=== PATIENT | male | born 1945 | race Caucasian/White ===

== ENCOUNTER 2019-03-21 10:57 | Observation (INO) ==
--- NOTE | 2019-03-21 11:54 | ERNOTE ---
Medical Problem HPI - General Chief Complaint: General Assessment Time Seen by Provider: 03/21/19 11:42 Source: patient Exam Limitations: no limitations - Immun/Allergies/Home Medications Immunizations: IMMUNIZATION HX Immunizations Up to Date Yes History of Influenza Vaccine Yes Hx Pneumococcal Vaccination Yes Allergies/Adverse Reactions: Allergies atorvastatin calcium [From Lipitor] Adverse Reaction (Mild, Verified 03/21/19 11:20) N/T IN ARMS Home Medications: HOME MEDICATIONS Calcium Carbonate/Vitamin D3 [Calcium 600 + Vit D 400 Tablet] 2 ea PO DAILY 03/23/14 [Last Taken 06/14/14 09:00] Fish,Saf,Flx,Brg Oils/O3,6,9N2 [Ukvv-Wnvp-Xacsnk Oil Softgel] 1 ea PO DAILY 03/23/14 [Last Taken 06/14/14 09:00] aspirin 81 mg chewable tablet 81 mg PO HS 07/03/18 [Last Taken Unknown] docusate sodium 100 mg capsule 100 mg PO DAILY #30 cap 03/03/19 [Last Taken Unknown] ferrous sulfate 324 mg (65 mg iron) tablet,delayed release 325 mg PO DAILY #30 tab 03/03/19 [Last Taken Unknown] trazodone 50 mg tablet 50 mg PO HS #90 tab 03/03/19 [Last Taken Unknown] citalopram 20 mg tablet 20 mg PO DAILY #30 tab 03/06/19 [Last Taken Unknown] losartan 100 mg tablet 100 mg PO DAILY #30 tab 03/06/19 [Last Taken Unknown] atenolol 25 mg tablet 25 mg PO HS tab 03/10/19 [Last Taken Unknown] - History of Present History Narrative: Patient went to try to take a walk this morning and was found to have extraordinarily high blood pressure and he had a brief episode where his vision became somewhat blurry. All the symptoms appear to have resolved by the time he got the emergency department, with the exception of the blood pressure still being high. Timing: gone now Severity: mild Review of Systems - Review of Systems Constitutional: Present: See HPI EYE: Present: no symptoms reported ENT: Present: no symptoms reported Respiratory: Present: no symptoms reported Cardiology: Present: no symptoms reported Gastrointestinal/Abdominal: Present: no symptoms reported Genitourinary: Present: no symptoms reported Musculoskeletal: Present: no symptoms reported Skin: Present: no symptoms reported Neurological: Present: no symptoms reported Endocrine: Present: no symptoms reported Hematologic/Lymphatic: Present: no symptoms reported Psych: Present: no symptoms reported Medical History (Updated 03/21/19 @ 13:21 by Hilario Louis DO) Major depressive disorder with current active episode (Chronic) Encounter for Medicare annual wellness exam (Acute) Medicare Preventative Screen Completed Constipation, chronic (Acute) secondary to medication side effect- ferrous sulfate Hypertension (Chronic) Hyponatremia (Acute) Osteoarthritis (Chronic) Onset Date: ~05/27/14 Knee pain (Chronic) Onset Date: Unknown Left Insomnia (Chronic) Onset Date: ~03/10/14 Hyperlipidemia (Chronic) Onset Date: Unknown Endocarditis (Chronic) Onset Date: Unknown Sub-acute bacterial Depression (Chronic) Onset Date: Unknown Hypertension Surgical History: Surgical History (Updated 07/03/18 @ 13:21 by Brittany Oliveira RN) H/O colonoscopy (Resolved) Onset Date: ~04/02/14 Tinguely; scattered diverticulosis Hx of cholecystectomy (Resolved) Onset Date: ~1974 H/O arthroplasty (Resolved) Onset Date: ~06/2014 Left; Right total knee arthroplasty Dr. Vann Family History: Family History (Updated 07/03/18 @ 13:23 by Brittany Oliveira RN) Father , age 83 CVA (cerebral vascular accident) Mother , age 80 Heart disease Sister , age 50 Alcoholic Social History: Preferred Language Mohawk Smoking Status Current some day smoker Have you smoked in the past 12 Yes: Cigars months Abuse History No History of abuse Psych History No pertinent hx Alcohol Use rarely Drug Use none (Last Updated 03/16/19 @ 08:44 by Анна Ruiz MD) No Social History Section defined Physical Exam - Physical Exam General Appearance: Present: wd/wn, alert, no apparent distress Eye Exam: Normal inspection: bilateral, PERRL: bilateral Ears, Nose, Throat: Present: normal ENT inspection, H, normal pharynx Neck: Present: normal inspection, nontender Respiratory: Present: no respiratory distress, normal breath sounds, no accessory muscle use, chest nontender, lungs clear Cardiovascular/Chest: Present: regular rate, rhythm, no murmur, normal peripheral pulses Gastrointestinal/Abdominal: Present: normal bowel sounds, nontender, nondi stended, soft, no organomegaly Rectal Exam: Present: deferred Back Exam: Present: normal inspection, normal range of motion Extremity Exam: Present: normal inspection, non-tender, no edema, normal range of motion Neurological Exam: Present: alert, oriented, normal mood/affect Skin Exam: Present: normal color, warm/dry Lymphatic Exam: Present: no adenopathy Progress - Results and Orders Patient's Lab Results:: I have reviewed the patient's lab results. - Vital Signs Patient's Vital Signs:: I have reviewed the patient's vital signs. Vital Signs: Vital Signs 03/21/19 11:16 03/21/19 11:28 03/21/19 11:41 Temperature 36.4 C Pulse Rate 58 L 68 64 Respiratory Rate 14 12 12 Blood Pressure 171/85 H 174/86 H 172/90 H O2 Sat by Pulse Oximetry 99 95 97 - CT/Ultrasound CT/Ultrasound Narrative: CT of the head reviewed by me - Progress/Reassessment Chief Complaint: General Assessment Plan - Plan Plan: I suspect that the sodium of 121 might be driving a lot of the symptomatology. Patient will be admitted to [facility] so we can correct the low sodium level. Departure Clinical Impression: Acute hyponatremia - Departure Disposition: Still a patient Condition: Fair Referrals: Arben Allen MD [Primary Care Provider] -
[2019-03-21 12:06] LABS: Hematocrit 32.5 % (42.0-52.0); Hemoglobin 11.8 gm/dL (13.5-18.0); Mean Corpuscular Hemoglobin 33.1 pg (27-31); Mean Corpuscular Hgb Conc 36.3 g/dl (32-36); Mean Platelet Volume 8.7 fl (8-11.3); Neutrophil # 3.4 K/mm3 (1.3-6.0); Platelet Count 230 K/mm3 (150-450); Red Blood Count 3.57 M/mm3 (4.7-6.0); Red Cell Distribution Width 12.8 % (11.5-14.0); White Blood Count 5.1 K/mm3 (4.0-10.5)
[2019-03-21 12:22] LABS: ALT 25 U/L (19-67); AST 25 U/L (0-48); Albumin * 3.5 gm/dl (3.4-5.0); Alkaline Phosphatase * 43 U/L (50-170); Anion Gap 11.2 mmol/L (6.8-13.8); Bilirubin, Total 0.7 mg/dL (0.0-1.1); Blood Urea Nitrogen 13 mg/dL (6-23); Ca. Corrected For Albumin 8.9 mg/dL (8.4-10.2); Calcium * 8.8 mg/dL (7.9-10.9); Carbon Dioxide 25.4 mmol/L (24-32.6); Chloride 89 mmol/L (97-106); Glucose * 109 mg/dL (70-110); Magnesium 1.9 mg/dL (1.2-2.8); Potassium 4.6 mmol/L (3.4-4.6); Sodium 121 mmol/L (132-142); Total Protein 6.5 gm/dL (6.2-8.2)
[2019-03-21 12:23] LABS: Troponin I Less than 0.017 ng/mL (0.00-0.10)
[2019-03-21 12:49] LABS: Urine Bilirubin Negative (NEGATIVE); Urine Blood 250 /ul (NEGATIVE); Urine Ketone Negative (NEGATIVE); Urine Nitrite Negative (NEGATIVE); Urine Protein >=300 mg/dL (NEGATIVE); Urine Urobilinogen Normal (NORMAL); Urine pH 7.5 pH (5.0-7.0)
[2019-03-21 13:02] LABS: Urine Appearance Slightly Cloudy (CLEAR); Urine Bacteria None Seen; Urine Color Yellow; Urine WBC 0-5 /hpf (0-5)
[2019-03-21] MEDS ORDERED: NORMAL SALINE 1,000 ML IV ONE (13:03)
[2019-03-21] MEDS: NORMAL SALINE 1,000 ML IV PRN ×2 (15:00→23:00)
--- NOTE | 2019-03-21 16:29 | HP ---
Chief Complaint - Chief Complaint Date of Service: 03/21/19 Time of Service: 14:30 Chief Complaint: lightheadedness, low Na+ History of Present Illness: Diego Curran is a 73-year-old male patient of Dr. Allen who presented to the emergency room after an episode of lightheadedness and blurry vision while walking on our walking track. He states he has been feeling well. He has had a cough that is nonproductive. He denies any constitutional problems such as fever, chills, nausea, vomiting, diarrhea, headaches, or abdominal pain. There is been no change in urination or bowel behavior. He takes no medications that would be triggering his hyponatremia. His urine does show 3+ proteinuria but I suspect it is from uncontrolled hypertension. He is taking losartan 100 mg daily and atenolol 25 mg each at bedtime but his blood pressure systolics are in the upper 160s. CT of the head was unrevealing. The EGFR remains normal at 84. There is 4+ protein sulfa silique acid and greater than 300 protein in the urine. Medical History (Updated 03/21/19 @ 13:21 by Hilario Louis DO) Major depressive disorder with current active episode (Chronic) Encounter for Medicare annual wellness exam (Acute) Medicare Preventative Screen Completed Constipation, chronic (Acute) secondary to medication side effect- ferrous sulfate Hypertension (Chronic) Hyponatremia (Acute) Osteoarthritis (Chronic) Onset Date: ~05/27/14 Knee pain (Chronic) Onset Date: Unknown Left Insomnia (Chronic) Onset Date: ~03/10/14 Hyperlipidemia (Chronic) Onset Date: Unknown Endocarditis (Chronic) Onset Date: Unknown Sub-acute bacterial Depression (Chronic) Onset Date: Unknown Hypertension Surgical History: Surgical History (Updated 07/03/18 @ 13:21 by Brittany Oliveira RN) H/O colonoscopy (Resolved) Onset Date: ~04/02/14 Tinguely; scattered diverticulosis Hx of cholecystectomy (Resolved) Onset Date: ~1974 H/O arthroplasty (Resolved) Onset Date: ~06/2014 Left; Right total knee arthroplasty Dr. Vann Family History: Family History (Updated 07/03/18 @ 13:23 by Brittany Oliveira RN) Father , age 83 CVA (cerebral vascular accident) Mother , age 80 Heart disease Sister , age 50 Alcoholic Social History: Patient Lives/Resources Home Utilized Occupation retired Preferred Language Gambian Do you have any restoration or Yes: Rastafari cultural preference? Smoking Status Light tobacco smoker Have you smoked in the past 12 Yes: occasional cigar months Do you dip or chew tobacco No Abuse History No History of abuse Psych History No pertinent hx Alcohol Use rarely Drug Use none (Last Updated 03/16/19 @ 08:44 by Анна Ruiz MD) No Social History Section defined Review Of Systems (GEN) - Review of Systems Generalized/Overall Review: Present: Weakness EENTM: Present: Blurred Vision Respiratory: Present: Cough Cardiac: Present: No Symptoms Reported Abdominal: Present: No Symptoms Reported Genitourinary: Present: No Symptoms Reported Musculoskeletal: Present: No Symptoms Reported Neurological: Present: Weakness Skin: Present: No Symptoms Reported Endocrine: Present: No Symptoms Reported Misc: All systems neg except as marked Immunizations: IMMUNIZATION HX Immunizations Up to Date Yes History of Influenza Vaccine Yes Hx Pneumococcal Vaccination Yes Allergies/Adverse Reactions: Allergies Allergy/AdvReac Type Severity Reaction Status Date / Time atorvastatin calcium AdvReac Mild N/T IN Verified 03/21/19 11:20 [From Lipitor] ARMS Home Medications: HOME MEDICATIONS Calcium Carbonate/Vitamin D3 [Calcium 600 + Vit D 400 Tablet] 2 ea PO DAILY 03/23/14 [Last Taken 06/14/14 09:00] Fish,Saf,Flx,Brg Oils/O3,6,9N2 [Nsji-Lsok-Ctjyoc Oil Softgel] 1 ea PO DAILY 03/23/14 [Last Taken 06/14/14 09:00] aspirin 81 mg chewable tablet 81 mg PO HS 07/03/18 [Last Taken Unknown] docusate sodium 100 mg capsule 100 mg PO DAILY #30 cap 03/03/19 [Last Taken Unknown] ferrous sulfate 324 mg (65 mg iron) tablet,delayed release 325 mg PO DAILY #30 tab 03/03/19 [Last Taken Unknown] trazodone 50 mg tablet 50 mg PO HS #90 tab 03/03/19 [Last Taken Unknown] citalopram 20 mg tablet 20 mg PO DAILY #30 tab 03/06/19 [Last Taken Unknown] losartan 100 mg tablet 100 mg PO DAILY #30 tab 03/06/19 [Last Taken Unknown] atenolol 25 mg tablet 25 mg PO HS tab 03/10/19 [Last Taken Unknown] Exam - Exam Vital Signs: Vital Signs - Last Taken Temp 36.7 C 03/21/19 14:00 Pulse 63 03/21/19 14:00 Resp 20 03/21/19 14:00 BP 184/97 H 03/21/19 14:00 Pulse Ox 98 03/21/19 14:00 Constitutional: Present: Alert, Oriented x3, Cooperative, Well developed, Well nourished, No distress ENT Exam: Present: normal ENT inspection, hearing grossly normal, pharynx normal, TMs normal Eye Exam: bilateral eye: normal inspection, PERRL, EOMI Neck: Present: non-tender, full range of motion, supple Back Exam: Present: normal inspection, no CVA tenderness, no vertebral tenderness Respiratory: Present: chest non-tender, lungs clear, normal breath sounds, no respiratory distress, no accessory muscle use Cardiovascular/Chest: Present: normal peripheral pulses, regular rate, rhythm, no chest tenderness, no edema, no gallop, no JVD, no murmur, no rub Peripheral Pulses: carotid (R): 2+, carotid (L): 2+, radial (R): 2+, radial (L): 2+ Abdomen: Present: Normal bowel sounds, soft, nontender, nondistended, no rebound tenderness, no hepatospenomegaly, no masses, obese /Rectal: Present: Exam deferred Extremity: Present: normal range of motion, non-tender, normal inspection, no pedal edema, no calf tenderness, normal capillary refill Skin Exam: Present: normal color, warm/dry, no cyanosis Lymphatic: Present: no adenopathy Neurologic: Present: sports internship II-XII nml as tested, normal cerebellar test, no motor/sensory deficits, alert, normal mood/affect, oriented x 3, dizzy/light- headedness - Earlier and is what caused him to go to the emergency room. He is not experiencing that now. Appearance: Present: appropriate appearance Eye contact: Present: cooperative, good eye contact, normal speech Thoughts: Present: normal thought pattern, no apparent hallucination Diagnostic Studies: Abnormal Lab Results 03/21/19 03/21/19 03/21/19 Range/Units 12:01 12:01 12:43 RBC 3.57 L (4.7-6.0) M/mm3 Hgb 11.8 L (13.5-18.0) gm/dL Hct 32.5 L (42.0-52.0) % MCH 33.1 H (27-31) pg MCHC 36.3 H (32-36) g/dl Lymphocytes % 16.4 L (20-51) % Monocytes % 14.0 H (0.0-9) % Lymphocytes # 0.83 L (1.5-3.5) k/mm3 Sodium 121 L (132-142) mmol/L Plasma Sodium 121 L (130-142) mmol/L Chloride 89 L (97-106) mmol/L Alkaline Phosphatase 43 L (50-170) U/L Urine Protein >=300 H (NEGATIVE) mg/dL Urine Blood 250 H (NEGATIVE) /ul Prot Sulfosalicylic Acd 4+ H (0) mg/dL Urine RBC 5-10 H (0-5) /hpf Laboratory Results WBC 5.1 K/mm3 (4.0-10.5) 03/21/19 12:01 RBC 3.57 M/mm3 (4.7-6.0) L 03/21/19 12:01 Hgb 11.8 gm/dL (13.5-18.0) L 03/21/19 12:01 Hct 32.5 % (42.0-52.0) L 03/21/19 12:01 MCV 91.0 fl (78-100) 03/21/19 12:01 MCH 33.1 pg (27-31) H 03/21/19 12:01 MCHC 36.3 g/dl (32-36) H 03/21/19 12:01 RDW 12.8 % (11.5-14.0) 03/21/19 12:01 Plt Count 230 K/mm3 (150-450) 03/21/19 12:01 MPV 8.7 fl (8-11.3) 03/21/19 12:01 Immature Gran % (Auto) 0.20 % (0.001-0.429) 03/21/19 12:01 Immature Gran # (Auto) 0.01 K/mm3 (0.000-0.0310) 03/21/19 12:01 68.0 % (42-75.0) 03/21/19 12:01 16.4 % (20-51) L 03/21/19 12:01 14.0 % (0.0-9) H 03/21/19 12:01 1.0 % (0.0-3.0) 03/21/19 12:01 0.4 % (0.0-1.0) 03/21/19 12:01 Nucleated RBC % 0.0 k/mm3 (0-1) 03/21/19 12:01 3.4 K/mm3 (1.3-6.0) 03/21/19 12:01 0.83 k/mm3 (1.5-3.5) L 03/21/19 12:01 0.7 k/mm3 (0.0-1.0) 03/21/19 12:01 0.1 k/mm3 (0.0-0.7) 03/21/19 12:01 Absolute Basophils 0.0 k/mm3 (0.0-0.1) 03/21/19 12:01 Sodium 121 mmol/L (132-142) L 03/21/19 12:01 121 mmol/L (130-142) L 03/21/19 12:01 Potassium 4.6 mmol/L (3.4-4.6) 03/21/19 12:01 Chloride 89 mmol/L (97-106) L 03/21/19 12:01 Carbon Dioxide 25.4 mmol/L (24-32.6) 03/21/19 12:01 11.2 mmol/L (6.8-13.8) 03/21/19 12:01 BUN 13 mg/dL (6-23) 03/21/19 12:01 0.93 mg/dL (0.4-1.4) 03/21/19 12:01 Est GFR (Non-Af Amer) 84 mL/min (60-130) 03/21/19 12:01 14.0 (9.0-21.6) 03/21/19 12:01 109 mg/dL (70-110) 03/21/19 12:01 Calcium 8.8 mg/dL (7.9-10.9) 03/21/19 12:01 Calcium Adj for Albumin 8.9 mg/dL (8.4-10.2) 03/21/19 12:01 Magnesium 1.9 mg/dL (1.2-2.8) 03/21/19 12:01 0.7 mg/dL (0.0-1.1) 03/21/19 12:01 AST 25 U/L (0-48) 03/21/19 12:01 ALT 25 U/L (19-67) 03/21/19 12:01 43 U/L (50-170) L 03/21/19 12:01 Less than 0.017 ng/mL (0.00-0.10) 03/21/19 12:01 6.5 gm/dL (6.2-8.2) 03/21/19 12:01 3.5 gm/dl (3.4-5.0) 03/21/19 12:01 Yellow 03/21/19 12:43 Slightly cloudy (CLEAR) 03/21/19 12:43 7.5 pH (5.0-7.0) 03/21/19 12:43 Ur Specific [place] 1.020 SP.GR. (1.005-1.030) 03/21/19 12:43 >=300 mg/dL (NEGATIVE) H 03/21/19 12:43 Negative mg/dL (NEGATIVE) 03/21/19 12:43 Negative mg/dL (NEGATIVE) 03/21/19 12:43 250 /ul (NEGATIVE) H 03/21/19 12:43 Negative (NEGATIVE) 03/21/19 12:43 Negative mg/dl (NEGATIVE) 03/21/19 12:43 Prot Sulfosalicylic Acd 4+ mg/dL (0) H 03/21/19 12:43 Normal EU/dl (NORMAL) 03/21/19 12:43 Ur Leukocyte Esterase Negative /ul (NEGATIVE) 03/21/19 12:43 5-10 /hpf (0-5) H 03/21/19 12:43 0-5 /hpf (0-5) 03/21/19 12:43 Ur Epithelial Cells 0-5 /hpf (0-5) 03/21/19 12:43 None seen (NONE) 03/21/19 12:43 No culture indicated 03/21/19 12:43 Assessment/Plan - Narrative Narrative: Mr. Curran is hyponatremic with a sodium of 121 on admission but the etiology is on known at this point. In the absence of enteric loss, medications that would induce sodium loss, or alcoholism one is left with metabolic reasons for the sodium loss. I will do a 24-hour urine collection for sodium excretion but also for protein excretion since he has a large amount of proteinuria. That is probably from hypertension and hypertensive nephropathy. I will order an ultrasound of the kidneys. I have ordered a chest x-ray. He will continue IV normal saline through the night. I will repeat his BMP tomorrow morning. I have added amlodipine 10 mg 1 daily for his blood pressure. I have increased the atenolol to 50 mg and continued the losartan at 100 mg/day. - Assessment/Plan (1) Hyponatremia Problem: Acute (2) Proteinuria Problem: Acute Qualifiers: Proteinuria type: unspecified Qualified Code(s): R80.9 - Proteinuria, unspecified (3) Hypertensive nephropathy Problem: Chronic (4) Essential hypertension Problem: Chronic
[2019-03-21] MEDS ORDERED: amLODIPine BESYLATE 5 MG TABLET ONE (17:28)
[2019-03-21] MEDS: amLODIPine BESYLATE 10 MG TABLET PO SCH ×2 (17:37→17:38)
[2019-03-21] MEDS ORDERED: ATENOLOL 25 MG TABLET PO SCH ×2 (21:00)
[2019-03-21] MEDS ORDERED: ATENOLOL 50 MG TABLET ONE (21:19)
[2019-03-21] MEDS: traZODone HCL 50 MG TABLET PO SCH (21:22)
[2019-03-21] MEDS: ASPIRIN 81 MG TAB.CHEW PO SCH (21:22)
[2019-03-22 06:16] LABS: Hematocrit 31.8 % (42.0-52.0); Hemoglobin 11.2 gm/dL (13.5-18.0); Mean Corpuscular Hemoglobin 32.7 pg (27-31); Mean Corpuscular Hgb Conc 35.2 g/dl (32-36); Mean Platelet Volume 8.8 fl (8-11.3); Neutrophil # 3.3 K/mm3 (1.3-6.0); Neutrophil % 60.2 % (42-75.0); Platelet Count 221 K/mm3 (150-450); Red Blood Count 3.42 M/mm3 (4.7-6.0); White Blood Count 5.5 K/mm3 (4.0-10.5)
[2019-03-22 06:41] LABS: Anion Gap 11.7 mmol/L (6.8-13.8); BUN/Creatinine Ratio 14.6 (9.0-21.6); Calcium * 8.2 mg/dL (7.9-10.9); Carbon Dioxide 24.1 mmol/L (24-32.6); Estimated Creat Clear 68.1; Potassium 4.8 mmol/L (3.4-4.6)
[2019-03-22] MEDS: NORMAL SALINE 1,000 ML IV PRN ×2 (07:10→17:25)
[2019-03-22] MEDS: FERROUS SULFATE 325 MG TABLET PO SCH (08:41)
[2019-03-22] MEDS: CITALOPRAM HYDROBROMIDE 20 MG TABLET PO SCH (08:41)
[2019-03-22] MEDS: DOCUSATE SODIUM 100 MG CAPSULE PO SCH (08:42)
[2019-03-22] MEDS: LOSARTAN POTASSIUM 50 MG TABLET PO SCH (08:42)
[2019-03-22] MEDS: amLODIPine BESYLATE 10 MG TABLET PO SCH (08:42)
--- NOTE | 2019-03-22 10:45 | PN ---
Subjective - Date and Time Seen Date: 03/22/19 Time: 08:20 Subjective Narrative: Mr. Curran has had an uneventful night. This morning however he was confused. He was putting his glasses on upside down, his dentures upside down, and was disoriented as to time place and date. He improved however when I went in to visit with him and he knew that today was Saturday, he knew he was in [facility], and remembered my name. He also knew the president's name. He did not remember what year it was. His sodium has improved from 121-129 this morning. The admission his chest x-ray does not show any chest tumor. The lungs however are hypoinflated. There is mild cardiomegaly and mild pulmonary vascular edema. The cause of his persistent hyponatremia is still undiagnosed. I have ordered an ACTH level to be done today. We will get him up to ambulate to tolerance today. Objective - Review of Systems Generalized/Overall Review: Reports: Weakness EENTM: Reports: No Symptoms Reported Respiratory: Reports: No Symptoms Reported Cardiac: Reports: No Symptoms Reported Abdominal: Reports: No Symptoms Reported Genitourinary Symptoms: Reports: No Symptoms Reported Musculoskeletal Complaints: Reports: No Symptoms Reported Neurological: Reports: No Symptoms Reported, Weakness, Other - Morning confusion seems to be improving Skin: Reports: No Symptoms Reported Endocrine: Reports: No Symptoms Reported - Vitals Vitals: Last Vital Signs Temp 37.0 C 03/22/19 07:28 Pulse 61 03/22/19 08:42 Resp 12 03/22/19 07:28 BP 160/92 H 03/22/19 08:42 Pulse Ox 97 03/22/19 07:28 - Abnormal Lab Findings Abnormal Lab Findings: Abnormal Lab Results 03/21/19 03/21/19 03/21/19 Range/Units 12:01 12:01 12:43 RBC 3.57 L (4.7-6.0) M/mm3 Hgb 11.8 L (13.5-18.0) gm/dL Hct 32.5 L (42.0-52.0) % MCH 33.1 H (27-31) pg MCHC 36.3 H (32-36) g/dl Lymphocytes % 16.4 L (20-51) % Monocytes % 14.0 H (0.0-9) % Lymphocytes # 0.83 L (1.5-3.5) k/mm3 Sodium 121 L (132-142) mmol/L Plasma Sodium 121 L (130-142) mmol/L Potassium (3.4-4.6) mmol/L Chloride 89 L (97-106) mmol/L Alkaline Phosphatase 43 L (50-170) U/L Urine Protein >=300 H (NEGATIVE) mg/dL Urine Blood 250 H (NEGATIVE) /ul Prot Sulfosalicylic Acd 4+ H (0) mg/dL Urine RBC 5-10 H (0-5) /hpf 03/22/19 03/22/19 Range/Units 06:00 06:00 RBC 3.42 L (4.7-6.0) M/mm3 Hgb 11.2 L (13.5-18.0) gm/dL Hct 31.8 L (42.0-52.0) % MCH 32.7 H (27-31) pg MCHC (32-36) g/dl Lymphocytes % (20-51) % Monocytes % 14.7 H (0.0-9) % Lymphocytes # 1.22 L (1.5-3.5) k/mm3 Sodium 129 L (132-142) mmol/L Plasma Sodium 129 L (130-142) mmol/L Potassium 4.8 H (3.4-4.6) mmol/L Chloride (97-106) mmol/L Alkaline Phosphatase (50-170) U/L Urine Protein (NEGATIVE) mg/dL Urine Blood (NEGATIVE) /ul Prot Sulfosalicylic Acd (0) mg/dL Urine RBC (0-5) /hpf - EKG/Xray Findings Interpretation: Reviewed by me - Exam Constitutional: Present: Alert, Oriented x3, Cooperative, Well developed, Well nourished, No distress ENT Exam: Present: normal ENT inspection, hearing grossly normal, pharynx normal, TMs normal Neck: Present: non-tender, full range of motion, supple Breasts: Present: Exam deferred Respiratory: Present: chest non-tender, lungs clear, normal breath sounds, no respiratory distress, no accessory muscle use Cardiovascular/Chest: Present: normal peripheral pulses, regular rate, rhythm, no chest tenderness, no edema, no gallop, no JVD, no murmur, no rub Abdomen: Present: Normal bowel sounds, soft, nontender, nondistended /Rectal: Present: Exam deferred, External genitalia normal Extremity: Present: normal range of motion, non-tender, normal inspection, no pedal edema, no calf tenderness, normal capillary refill Skin Exam: Present: normal color, warm/dry, no cyanosis Lymphatic: Present: no adenopathy Neurologic: Present: tennis net maker II-XII nml as tested, no motor/sensory deficits, alert, normal mood/affect, oriented x 3 Appearance: Present: appropriate appearance, appropriate insight, neat, impaired recent memory Eye contact: Present: cooperative, good eye contact, avoids eye contact, decreased rate of speech Thoughts: Present: normal thought pattern, no apparent hallucination Assessment/Plan Plan Narrative: 1. Slow the IV rate down to 100 cc/h 2. Progress ambulation 3. Check ACTH level 4. Consider discharge later today if stable. 5. Complete the 24-hour urine collection for protein excretion, creatinine clearance, and sodium excretion. - Problems/Diagnosis (1) Hyponatremia Problem: Acute (2) Proteinuria Problem: Acute Qualifiers: Proteinuria type: unspecified Qualified Code(s): R80.9 - Proteinuria, unspecified (3) Hypertensive nephropathy Problem: Chronic (4) Essential hypertension Problem: Chronic
[2019-03-22 19:42] LABS: CRUR 23.7 mg/dL (60-200)
[2019-03-22 19:48] LABS: Total Protein Urine 107.5 mg/dL (0-12)
[2019-03-22 19:54] LABS: NAUR 56 mmol/L (40-220)
[2019-03-22 20:16] LABS: Serum Creatinine 0.9 mg/dl (0.4-1.4)
[2019-03-22 20:18] LABS: 24Hr Urine Sodium 297 mmol/24h (40-220)
[2019-03-22] MEDS: ASPIRIN 81 MG TAB.CHEW PO SCH (20:58)
[2019-03-22] MEDS: traZODone HCL 50 MG TABLET PO SCH (20:59)
[2019-03-22] MEDS ORDERED: ATENOLOL 50 MG TABLET PO SCH (21:00)
[2019-03-23] MEDS: NORMAL SALINE 1,000 ML IV PRN (03:03)
[2019-03-23] MEDS: CITALOPRAM HYDROBROMIDE 20 MG TABLET PO SCH (08:48)
[2019-03-23] MEDS: DOCUSATE SODIUM 100 MG CAPSULE PO SCH (08:49)
[2019-03-23] MEDS: FERROUS SULFATE 325 MG TABLET PO SCH (08:49)
[2019-03-23] MEDS: amLODIPine BESYLATE 10 MG TABLET PO SCH (08:50)
[2019-03-23] MEDS: LOSARTAN POTASSIUM 50 MG TABLET PO SCH (08:50)
[2019-03-23 08:53] LABS: Hematocrit 29.7 % (42.0-52.0); Hemoglobin 10.4 gm/dL (13.5-18.0); Mean Cell Volume 94.3 fl (78-100); Mean Platelet Volume 8.6 fl (8-11.3); Neutrophil # 4.1 K/mm3 (1.3-6.0); Neutrophil % 73.8 % (42-75.0); Platelet Count 204 K/mm3 (150-450); Red Blood Count 3.15 M/mm3 (4.7-6.0); Red Cell Distribution Width 13.2 % (11.5-14.0); White Blood Count 5.5 K/mm3 (4.0-10.5)
--- NOTE | 2019-03-23 08:53 | PN ---
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 will recheck his Na level and will add an anemia work up. possible discharge if Na is above 130. will d/c his citalopram as it is more SIADH promoting than TCA/T4CA). If he conrtinues to get low on Na and if he really needs antidperessaqn and antianxiety, will do Mirtazapine.
--- NOTE | 2019-03-23 09:15 | DS ---
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 Problem: Resolved (2) Proteinuria Problem: Acute Qualifiers: Proteinuria type: unspecified Qualified Code(s): R80.9 - Proteinuria, unspecified (3) Hypertensive nephropathy Problem: Chronic (4) Essential hypertension Problem: Chronic (5) Hyperlipidemia Problem: Chronic Qualifiers: Hyperlipidemia type: mixed hyperlipidemia Qualified Code(s): E78.2 - Mixed hyperlipidemia (6) Major depressive disorder with current active episode Problem: Chronic Qualifiers: Major depression recurrence: recurrent Major depression episode severity: severe Psychotic features: without psychotic features Qualified Code(s): F33.2 - Major depressive disorder, recurrent severe without psychotic features Description of Stay: Diego Curran is a 73-year-old male patient who presented to the emergency room on 0n 03/22/2019 after an episode of lightheadedness and blurry vision while walking on our walking track. He states he has been feeling well. He has had a cough that is nonproductive. He denies any constitutional problems such as fever, chills, nausea, vomiting, diarrhea, headaches, or abdominal pain. There is been no change in urination or bowel behavior. His urine does show 3+ proteinuria likely from uncontrolled hypertension. CT of the head was unrevealing. The EGFR remains was 84. Reviewing his medications he is on Citalopram and trazodine which both could cause SIADH with hyponatremia. He has been chronically hyonatremic since February this year and asymptomatic. He had an acute symptmatic hyponatremia when his Na went down to 121. His mentation is at baseline now as per family with Na of 125 and above. . He still continues to have anxiety/depression and so will discontinue the SSRI ( citalopram) and keep him on Trazodone for now and also fluid restric him to 1 L/day. If on follow up his Na remains to be low , will stop his trazodone and start him Mirtazapine. We will recheck his BMP on Saturday. It takes about 5 days for his citalopram to be eliminated. We will refer him to nephrology for his proteinuria if it does not improve with correction of his SIADH. Procedures Performed: none Results and Findings: Lab Pending Results 03/21/19 12:01: WBC 5.1, RBC 3.57 L, Hgb 11.8 L, Hct 32.5 L, MCV 91.0, MCH 33.1 H, MCHC 36.3 H, RDW 12.8, Plt Count 230, MPV 8.7, Immature Gran % (Auto) 0.20, Immature Gran # (Auto) 0.01, Neutrophils % 68.0, Lymphocytes % 16.4 L, Monocytes % 14.0 H, Eosinophils % 1.0, Basophils % 0.4, Nucleated RBC % 0.0, Neutrophils # 3.4, Lymphocytes # 0.83 L, Monocytes # 0.7, Eosinophils # 0.1, Absolute Basophils 0.0 03/21/19 12:01: Sodium 121 L, Plasma Sodium 121 L, Potassium 4.6, Chloride 89 L, Carbon Dioxide 25.4, Anion Gap 11.2, BUN 13, Creatinine 0.93, Est GFR (Non-Af Amer) 84, BUN/Creatinine Ratio 14.0, Random Glucose 109, Calcium 8.8, Calcium Adj for Albumin 8.9, Magnesium 1.9, Total Bilirubin 0.7, AST 25, ALT 25, Alkaline Phosphatase 43 L, Troponin I Less than 0.017, Total Protein 6.5, Albumin 3.5 03/21/19 12:42: Ur Random Sodium 55 03/21/19 12:43: Urine Color Yellow, Urine Appearance Slightly cloudy, Urine pH 7.5, Ur Specific Bryce 1.020, Urine Protein >=300 H, Urine Glucose (UA) Negative, Urine Ketones Negative, Urine Blood 250 H, Urine Nitrate Negative, Urine Bilirubin Negative, Prot Sulfosalicylic Acd 4+ H, Urine Urobilinogen Normal, Ur Leukocyte Esterase Negative, Urine RBC 5-10 H, Urine WBC 0-5, Ur Epithelial Cells 0-5, Urine Bacteria None seen, Urine Culture Comments No culture indicated 03/21/19 15:55: Creatinine 0.9, Urine Collection Time 24, Urine Total Volume 5300, Urine Creatinine 23.7 L, Creatinine Clearance 82 03/21/19 15:55: U Random Total Protein 107.5 H, Urine Collection Time 24, Urine Total Volume 5300, Ur Total Protein 24 Hr 5697.5 H 03/21/19 15:55: Urine Collection Time 24, Urine Total Volume 5300, Ur Sodium 24 Hour 297 H 03/22/19 06:00: WBC 5.5, RBC 3.42 L, Hgb 11.2 L, Hct 31.8 L, MCV 93.0, MCH 32.7 H, MCHC 35.2, RDW 13.0, Plt Count 221, MPV 8.8, Immature Gran % (Auto) 0.40, Immature Gran # (Auto) 0.02, Neutrophils % 60.2, Lymphocytes % 22.1, Monocytes % 14.7 H, Eosinophils % 2.2, Basophils % 0.4, Nucleated RBC % 0.0, Neutrophils # 3.3, Lymphocytes # 1.22 L, Monocytes # 0.8, Eosinophils # 0.1, Absolute Basophils 0.0 03/22/19 06:00: Sodium 129 L, Plasma Sodium 129 L, Potassium 4.8 H, Chloride 98, Carbon Dioxide 24.1, Anion Gap 11.7, BUN 13, Creatinine 0.89, Est GFR (Non-Af Amer) 89, BUN/Creatinine Ratio 14.6, Random Glucose 98, Calcium 8.2 03/22/19 : Creatinine Cancelled, Urine Collection Time Cancelled, Urine Total Volume Cancelled, Urine Creatinine Cancelled, Creatinine Clearance Cancelled 03/22/19 : U Random Total Protein Cancelled, Urine Collection Time Cancelled, Urine Total Volume Cancelled, Ur Total Protein 24 Hr Cancelled 03/22/19 : Urine Collection Time Cancelled, Urine Total Volume Cancelled, Ur Sodium 24 Hour Cancelled Discharge Location: Home Disposition: Home self-care Condition: Stable Discharge Activity: Activity as tolerated Discharge Diet: General/regular food - for now then will swith to low Na diet nce his hyponatremia is resolved, Other - fluid restricition to 1 liter/day Referrals: Arben Allen MD [Primary Care Provider] - Additional Patient Instructions (free text): -Please make TCM appointment unless fci discharge. Thank you! Luh @ [phone]. Follow up with me on Saturday morning with BMP. Prescriptions (Any new or edited meds): amLODIPine BESYLATE [Norvasc] 10 mg PO DAILY #30 tablet Atenolol [Tenormin] 50 mg PO HS #30 tablet Complete Home Medications List: Complete Home Medication List: Calcium Carbonate/Vitamin D3 [Calcium 600 + Vit D 400 Tablet] 2 ea PO DAILY 03/23/14 Fish,Saf,Flx,Brg Oils/O3,6,9N2 [Liob-Mhnr-Dnmyyh Oil Softgel] 1 ea PO DAILY aspirin 81 mg chewable tablet 81 mg PO HS 07/03/18 docusate sodium 100 mg capsule 100 mg PO DAILY #30 cap 03/03/19 trazodone 50 mg tablet 50 mg PO HS #90 tab 03/03/19 losartan 100 mg tablet 100 mg PO DAILY #30 tab 03/06/19 Atenolol [Tenormin] 50 mg PO HS #30 tablet 03/23/19 amLODIPine BESYLATE [Norvasc] 10 mg PO DAILY #30 tablet 03/23/19 Amb Orders for Discharge: Basic Metabolic Panel Time Frame: 03/27/19, Location: Laboratory
[2019-03-23 09:20] LABS: Iron 71 mcg/dL (35-120); Transferrin Sat. (% Sat.) 28 % (15-55)
[2019-03-23 09:29] LABS: BUN/Creatinine Ratio 11.2 (9.0-21.6); Calcium * 8.3 mg/dL (7.9-10.9); Carbon Dioxide 23.5 mmol/L (24-32.6); Estimated Creat Clear 68.1; Folate 15.1 ng/mL (8.6-58.9); Potassium 4.5 mmol/L (3.4-4.6)
[2019-03-23 16:21] LABS: Anion Gap 9.7 mmol/L (6.8-13.8); BUN/Creatinine Ratio 14.9 (9.0-21.6); Calcium * 8.5 mg/dL (7.9-10.9); Carbon Dioxide 24.7 mmol/L (24-32.6); Estimated Creat Clear 69.6; Potassium 4.4 mmol/L (3.4-4.6)
[2019-03-23 17:28] LABS: Urine Bilirubin Negative (NEGATIVE); Urine Blood 250 /ul (NEGATIVE); Urine Ketone Negative (NEGATIVE); Urine Nitrite Negative (NEGATIVE); Urine Protein 100 mg/dL (NEGATIVE); Urine Specific Gravity 1.015 SP.GR. (1.005-1.030); Urine Urobilinogen Normal (NORMAL); Urine pH 6.5 pH (5.0-7.0)
[2019-03-23 17:40] LABS: Urine Appearance Clear (CLEAR); Urine Bacteria TRACE; Urine Color Yellow; Urine WBC None Seen /hpf (0-5)
[2019-03-23 18:20] VITALS: BP 169/92
== END 2019-03-23 18:05 | disposition home or self-care (01) ==
LOC: ER 10:57 → MS 10:57
PROVIDERS: ADMIT Family Medicine; ATTEND Internal Medicine
DX: R80.9 Proteinuria, unspecified; D50.0 Iron deficiency anemia secondary to blood loss (chronic); I10 Essential (primary) hypertension; E78.2 Mixed hyperlipidemia; E87.1 Hypo-osmolality and hyponatremia; F33.2 Major depressive disorder, recurrent severe without psychotic features
CPT/HCPCS: 36415; 70450; 70553; 71020; 71046; 76770; 80048; 80053; 81001; 82024; 82575; 82607; 82728; 82746; 83540; 83550; 83735; 83930; 83935; 84155; 84156; 84300; 84466; 84484; 85025; 93005; 96360; 96361; 99285; A9576; G0378

== ENCOUNTER 2020-08-11 15:07 | Inpatient (IN) ==
[2020-08-11 17:16] LABS: Anion Gap 14.6 mmol/L (6.8-13.8); BUN/Creatinine Ratio 17.2 (9.0-21.6); Bilirubin, Total 0.5 mg/dL (0.0-1.1); Ca. Corrected For Albumin 9.4 mg/dL (8.4-10.2); Calcium * 9.7 mg/dL (7.9-10.9); Carbon Dioxide 22.9 mmol/L (24-32.6); Chol/HDL Risk Ratio 2.1 mg/dL (3.3-5.0); Potassium 4.5 mmol/L (3.4-4.6); TSH * 0.958 uIU/mL (0.358-3.74); Total Protein 7.5 gm/dL (6.2-8.2)
--- NOTE | 2020-08-11 17:39 | PN ---
[facility] Note - Interim Date: 08/11/20 Time: 17:34 Narrative: 08/11/20 17:34 The patient was seen in the [facility] floor on 08/11/2020. Repeat labs shows that his sodium is now up to 124 from 121. I added urine sodium and urine potassium. Will defer from starting him on hypertonic saline solution. We will start him on 0.9 NSS IV fluids at 125 mL/h and recheck sodium in 4 to 6 hours. Will fluid restrict him to 1250 mL for 24 hours in a.m. We will hold his trazodone for tonight and likely restart it at half the dose as he is needing it for his depression and insomnia. My clinic visit notes will serve as my H&P for this admission.
[2020-08-11] MEDS: NORMAL SALINE 1,000 ML IV PRN (18:07)
[2020-08-11] MEDS: ATENOLOL 50 MG TABLET PO SCH (20:39)
[2020-08-11] MEDS: FINASTERIDE 5 MG TABLET PO SCH (20:40)
[2020-08-11] MEDS: CALCIUM CARBONATE 500 MG TAB.CHEW PO PRN (20:41)
[2020-08-11] MEDS ORDERED: ROSUVASTATIN CALCIUM 10 MG TABLET PO SCH (21:00)
[2020-08-11 22:20] LABS: Anion Gap 12.6 mmol/L (6.8-13.8); BUN/Creatinine Ratio 19.3 (9.0-21.6); Calcium * 9.3 mg/dL (7.9-10.9); Carbon Dioxide 22.6 mmol/L (24-32.6); Estimated Creat Clear 54.7; Potassium 4.2 mmol/L (3.4-4.6)
[2020-08-12] MEDS: NORMAL SALINE 1,000 ML IV PRN (02:04)
[2020-08-12 02:57] LABS: Anion Gap 10.8 mmol/L (6.8-13.8); BUN/Creatinine Ratio 17.3 (9.0-21.6); Calcium * 9.2 mg/dL (7.9-10.9); Carbon Dioxide 23.8 mmol/L (24-32.6); Estimated Creat Clear 54.2; Potassium 4.6 mmol/L (3.4-4.6)
[2020-08-12 06:59] LABS: Anion Gap 11.8 mmol/L (6.8-13.8); BUN/Creatinine Ratio 17.3 (9.0-21.6); Calcium * 9.3 mg/dL (7.9-10.9); Carbon Dioxide 23.9 mmol/L (24-32.6); Estimated Creat Clear 60.9; Potassium 4.7 mmol/L (3.4-4.6)
[2020-08-12] MEDS ORDERED: FUROSEMIDE 10 MG/ML VIAL IV ONE (08:17)
[2020-08-12] MEDS: CHOLECALCIFEROL 1,000 UNIT CAPSULE PO SCH (08:25)
[2020-08-12] MEDS: FINASTERIDE 5 MG TABLET PO SCH (08:26)
[2020-08-12] MEDS: ASPIRIN 81 MG TABLET.DR PO SCH (08:26)
[2020-08-12] MEDS: ATENOLOL 50 MG TABLET PO SCH (08:26)
[2020-08-12] MEDS: DOCUSATE SODIUM 100 MG CAPSULE PO SCH (08:27)
[2020-08-12] MEDS: amLODIPine BESYLATE 10 MG TABLET PO SCH (08:27)
[2020-08-12] MEDS: LOSARTAN POTASSIUM 50 MG TABLET PO SCH (08:27)
[2020-08-12] MEDS: OMEGA-3 FATTY ACIDS 1 CAP CAPSULE PO SCH (08:28)
[2020-08-12] MEDS ORDERED: SALMON OIL/OMEGA-3 FATTY ACIDS 1,200 MG CAPSULE PO SCH (09:00)
[2020-08-12] MEDS ORDERED: SODIUM CHLORIDE 1 GM TABLET PO SCH (09:00)
[2020-08-12] MEDS: CALCIUM CARBONATE 500 MG TAB.CHEW PO PRN ×2 (10:23→15:59)
--- NOTE | 2020-08-12 10:48 | DS ---
Date of Discharge:: 08/12/20 Hospital Course: Diego Curran is a 74-year-old white male with PMH of hypertension, depression, insomnia, who presented to the [address] of low sodium level. He was seen yesterday for a sick visit for dizziness and not feeling well. When patient was being signed out by my nurse from the office she had noticed that the patient had a hard time comprehending her and she had to write instructions of how to go to get his laboratories. He stated he feels about the same as he did yesterday. His lab work done on 08/10/2020 showed a hemoglobin of 12.3, MCV of 90.9, platelet of 305, sodium of 121, potassium of 4.6, creatinine of 1.29 with a GFR of 58, random blood sugar of 107, LFTs within normal limits except for slightly low alkaline phosphatase of 46, total cholesterol 115, LDL 41, HDL of 51, PSA of 1.79. He was admittted for observation and was going to be started on 3% hypertonic for chronic euvolemic hyponatremia. His repat Na though showed that he was autocorrecting as it was to 124 from 121. NSS was started and his Na this morning is 126. Will d/c his IVF and give hime IV loop diuretic and put him on fluid restriction and salt tablets. His Trazodone was held last night . He says that he had a hard time sleeping last night. Will restart it tonight at half the dose. We will repat BMP at noon and possible discharge this afternoon. Will repeat a BMP in Saturday. ADDENDUM: His Na came back as 125. Will cancel his discharge today and start him on hypertonic saline. Will transfer him to acute status. This will serve as Progress Notes for today. Procedures Performed: none Results and Findings: Lab Pending Results 08/11/20 16:27: Sodium 124 L, Plasma Sodium 124 L, Potassium 4.5, Chloride 91 L, Carbon Dioxide 22.9 L, Anion Gap 14.6 H, BUN 21, Creatinine 1.22, Est GFR (Non- Af Amer) 62, BUN/Creatinine Ratio 17.2, Random Glucose 114 H, Calcium 9.7, Calcium Adj for Albumin 9.4, Total Bilirubin 0.5, AST 31, ALT 36, Alkaline Phosphatase 51, Total Protein 7.5, Albumin 4.0, Triglycerides 121, Cholesterol 122, LDL Cholesterol 42 L, VLDL Cholesterol 24, HDL Cholesterol 56, Cholesterol/HDL Ratio 2.1 L, TSH 0.958 08/11/20 16:52: Ur Random Potassium 18.8 08/11/20 17:15: Ur Random Sodium 53 08/11/20 21:58: Sodium 125 L, Plasma Sodium 125 L, Potassium 4.2, Chloride 94 L, Carbon Dioxide 22.6 L, Anion Gap 12.6, BUN 21, Creatinine 1.09, Est GFR (Non-Af Amer) 70, BUN/Creatinine Ratio 19.3, Random Glucose 112 H, Calcium 9.3 08/12/20 02:53: Sodium 126 L, Plasma Sodium 126 L, Potassium 4.6, Chloride 96 L, Carbon Dioxide 23.8 L, Anion Gap 10.8, BUN 19, Creatinine 1.10, Est GFR (Non-Af Amer) 69, BUN/Creatinine Ratio 17.3, Random Glucose 97, Calcium 9.2 08/12/20 06:25: Sodium 126 L, Plasma Sodium 126 L, Potassium 4.7 H, Chloride 95 L, Carbon Dioxide 23.9 L, Anion Gap 11.8, BUN 17, Creatinine 0.98, Est GFR (Non- Af Amer) 79, BUN/Creatinine Ratio 17.3, Random Glucose 101, Calcium 9.3 Discharge Location: Home Disposition: Home self-care Condition: Stable Discharge Activity: Activity as tolerated Discharge Diet: General/regular food Complete Home Medications List: Complete Home Medication List: Fish,Saf,Flx,Brg Oils/O3,6,9N2 [Uelc-Ntzw-Fmtkcm Oil Softgel] 1 ea PO DAILY 03/23/14 acetaminophen 500 mg capsule 500 mg PO Q6H PRN #30 cap 08/13/19 docusate sodium 100 mg capsule 100 mg PO DAILY #30 cap 09/18/19 amlodipine 10 mg tablet 10 mg PO DAILY #90 tab 03/24/20 calcium carb-vit C3-fmxenyyqr-rnle 333 mg-200 unit-133 mg-5 mg tablet 1 tab PO DAILY 04/06/20 finasteride 5 mg tablet 5 mg PO HS tab 04/06/20 tamsulosin 0.4 mg capsule 0.4 mg PO DAILY cap 04/06/20 mupirocin 2 % topical ointment 1 applic TP BID #22 g 05/04/20 guaifenesin 600 mg tablet, extended release 12 hr 600 mg PO BID #14 tab 06/10/20 albuterol sulfate 90 mcg/actuation aerosol inhaler 2 inh IH QID PRN #18 g 06/21/20 calcitonin (salmon) 200 unit/actuation nasal spray 1 spray INTRANASAL (ALT) DAILY #3.7 ml 06/27/20 Aspirin [Aspirin Enteric Coated] 81 mg PO DAILY 08/11/20 Atenolol [Tenormin] 50 mg PO HS 08/11/20 Cholecalciferol (Vitamin D3) [Vitamin D3] 1,250 mcg PO DAILY 08/11/20 Losartan Potassium [Cozaar] 100 mg PO HS 08/11/20 Rosuvastatin Calcium See Rx Instructions PO .COMPLEX 08/11/20 traZODone HCL [Trazodone HCl] 50 mg PO HS 08/11/20
[2020-08-12 12:54] LABS: Anion Gap 13.3 mmol/L (6.8-13.8); BUN/Creatinine Ratio 17.9 (9.0-21.6); Calcium * 9.1 mg/dL (7.9-10.9); Carbon Dioxide 22.2 mmol/L (24-32.6); Estimated Creat Clear 56.3; Potassium 4.5 mmol/L (3.4-4.6)
[2020-08-12] MEDS ORDERED: SODIUM CHLORIDE 3 % 500 ML IV SCH (13:15)
--- NOTE | 2020-08-12 13:18 | PN ---
[facility] Note - Interim Date: 08/12/20 Time: 13:16 Narrative: 08/12/20 13:16 patient 's follow up Na is still 125-126. Will d/c his fluid restriction and Na tablets for now and start him on 3% hypertonic saline. monitor Na q 2 hours. will cancel discharge for today. My discharge summary will be my progress notes for today.
[2020-08-12] MEDS ORDERED: ENOXAPARIN SODIUM 40 MG/0.4 ML SYRG SC SCH (13:30)
[2020-08-12] MEDS ORDERED: ALBUTEROL SULFATE 2.5 MG/0.5 ML VIAL.NEB IH PRN (13:59)
[2020-08-12] MEDS ORDERED: ACETAMINOPHEN 500 MG TABLET PO PRN (13:59)
[2020-08-12] MEDS ORDERED: ROSUVASTATIN CALCIUM 20 MG TABLET PO SCH ×2 (14:00→21:00)
[2020-08-12] MEDS ORDERED: TAMSULOSIN HCL 0.4 MG CAP.SR.24H PO SCH (18:00)
[2020-08-12] MEDS ORDERED: ATENOLOL 50 MG TABLET PO SCH (21:00)
[2020-08-12] MEDS ORDERED: NON-FORMULARY 1 DOSE DOSE (Losartan Potassium [Cozaar] 100 MG) PO SCH (21:00)
[2020-08-12] MEDS ORDERED: traZODone HCL 50 MG TABLET PO SCH (21:00)
[2020-08-12] MEDS ORDERED: FINASTERIDE 5 MG TABLET PO SCH (21:00)
[2020-08-13] MEDS: CHOLECALCIFEROL 1,000 UNIT CAPSULE PO SCH (08:09)
[2020-08-13] MEDS: ATENOLOL 50 MG TABLET PO SCH (08:09)
[2020-08-13] MEDS: OMEGA-3 FATTY ACIDS 1 CAP CAPSULE PO SCH (08:09)
[2020-08-13] MEDS: DOCUSATE SODIUM 100 MG CAPSULE PO SCH (08:09)
[2020-08-13] MEDS: FINASTERIDE 5 MG TABLET PO SCH (08:09)
[2020-08-13] MEDS: LOSARTAN POTASSIUM 50 MG TABLET PO SCH (08:09)
[2020-08-13] MEDS: amLODIPine BESYLATE 10 MG TABLET PO SCH (08:09)
[2020-08-13] MEDS: ASPIRIN 81 MG TABLET.DR PO SCH (08:09)
[2020-08-13] MEDS ORDERED: TAMSULOSIN HCL 0.4 MG CAP.SR.24H PO SCH (09:00)
[2020-08-13] MEDS ORDERED: CHOLECALCIFEROL 1250 MCG PO SCH (09:00)
[2020-08-13] MEDS ORDERED: CALCITONIN,SALMON,SYNTHETIC 30 SPRAY BTL NS SCH (09:00)
[2020-08-13] MEDS ORDERED: amLODIPine BESYLATE 10 MG TABLET PO SCH (09:00)
[2020-08-13] MEDS ORDERED: ASPIRIN 81 MG TABLET.DR PO SCH (09:00)
[2020-08-13] MEDS ORDERED: CALCIUM CARBONATE/VITAMIN D3 1 TAB TABLET PO SCH (09:00)
[2020-08-13] MEDS ORDERED: DOCUSATE SODIUM 100 MG CAPSULE PO SCH (09:00)
[2020-08-13] MEDS ORDERED: SODIUM CHLORIDE 1 GM TABLET PO SCH (09:00)
--- NOTE | 2020-08-13 11:16 | DS ---
Date of Discharge:: 08/13/20 Hospital Course: Diego Curran is a 74-year-old white male with PMH of hypertension, depression, insomnia, who presented to the [address] of low sodium level. He was seen yesterday for a sick visit for dizziness and not feeling well. When patient was being signed out by my nurse from the office she had noticed that the patient had a hard time comprehending her and she had to write instructions of how to go to get his laboratories. He stated he feels about the same as he did yesterday. His lab work done on 08/10/2020 showed a hemoglobin of 12.3, MCV of 90.9, platelet of 305, sodium of 121, potassium of 4.6, creatinine of 1.29 with a GFR of 58, random blood sugar of 107, LFTs within normal limits except for slightly low alkaline phosphatase of 46, total cholesterol 115, LDL 41, HDL of 51, PSA of 1.79. He was admittted for observation and was going to be started on 3% hypertonic for chronic euvolemic hyponatremia. His repat Na though showed that he was autocorrecting as it was to 124 from 121. NSS was started and his Na this morning is 126. We d/c his IVF and gave him IV loop diuretic and put him on fluid restriction and salt tablets. We repeated his BMP at noon and it came back even lower at 125. His discharge was cancelled and we started him on hypertonic saline. His Na today is 130. He will be place on fluid restricition for 1`.5L/day and Na tablets 1 gram PO TID. We will restart his trazodone at 25 mg PO q daily for now. We will see patient on Saturday with repeat BMP. Procedures Performed: none Results and Findings: Lab Pending Results 08/11/20 16:27: Sodium 124 L, Plasma Sodium 124 L, Potassium 4.5, Chloride 91 L, Carbon Dioxide 22.9 L, Anion Gap 14.6 H, BUN 21, Creatinine 1.22, Est GFR (Non- Af Amer) 62, BUN/Creatinine Ratio 17.2, Random Glucose 114 H, Calcium 9.7, Calcium Adj for Albumin 9.4, Total Bilirubin 0.5, AST 31, ALT 36, Alkaline Phosphatase 51, Total Protein 7.5, Albumin 4.0, Triglycerides 121, Cholesterol 122, LDL Cholesterol 42 L, VLDL Cholesterol 24, HDL Cholesterol 56, Cholesterol/HDL Ratio 2.1 L, TSH 0.958 08/11/20 16:52: Ur Random Potassium 18.8 08/11/20 17:15: Ur Random Sodium 53 08/11/20 21:58: Sodium 125 L, Plasma Sodium 125 L, Potassium 4.2, Chloride 94 L, Carbon Dioxide 22.6 L, Anion Gap 12.6, BUN 21, Creatinine 1.09, Est GFR (Non-Af Amer) 70, BUN/Creatinine Ratio 19.3, Random Glucose 112 H, Calcium 9.3 08/12/20 02:53: Sodium 126 L, Plasma Sodium 126 L, Potassium 4.6, Chloride 96 L, Carbon Dioxide 23.8 L, Anion Gap 10.8, BUN 19, Creatinine 1.10, Est GFR (Non-Af Amer) 69, BUN/Creatinine Ratio 17.3, Random Glucose 97, Calcium 9.2 08/12/20 06:25: Sodium 126 L, Plasma Sodium 126 L, Potassium 4.7 H, Chloride 95 L, Carbon Dioxide 23.9 L, Anion Gap 11.8, BUN 17, Creatinine 0.98, Est GFR (Non- Af Amer) 79, BUN/Creatinine Ratio 17.3, Random Glucose 101, Calcium 9.3 08/12/20 12:34: Sodium 125 L, Plasma Sodium 126 L, Potassium 4.5, Chloride 94 L, Carbon Dioxide 22.2 L, Anion Gap 13.3, BUN 19, Creatinine 1.06, Est GFR (Non-Af Amer) 72, BUN/Creatinine Ratio 17.9, Random Glucose 167 H D, Calcium 9.1 08/12/20 15:30: Sodium 127 L 08/12/20 17:34: Sodium 128 L 08/12/20 19:38: Sodium 127 L 08/12/20 23:28: Sodium 129 L 08/13/20 03:30: Sodium 130 L Discharge Location: Home Disposition: Home self-care Condition: Stable Discharge Activity: Activity as tolerated Discharge Diet: General/regular food Additional Patient Instructions (free text): Follow up with PCP on Saturday with BMP. Complete Home Medications List: Complete Home Medication List: Fish,Saf,Flx,Brg Oils/O3,6,9N2 [Chet-Pput-Acdkcw Oil Softgel] 1 ea PO DAILY 03/23/14 acetaminophen 500 mg capsule 500 mg PO Q6H PRN #30 cap 08/13/19 docusate sodium 100 mg capsule 100 mg PO DAILY #30 cap 09/18/19 amlodipine 10 mg tablet 10 mg PO DAILY #90 tab 03/24/20 calcium carb-vit L4-taqygaccb-woew 333 mg-200 unit-133 mg-5 mg tablet 1 tab PO DAILY 04/06/20 finasteride 5 mg tablet 5 mg PO HS tab 04/06/20 tamsulosin 0.4 mg capsule 0.4 mg PO DAILY cap 04/06/20 albuterol sulfate 90 mcg/actuation aerosol inhaler 2 inh IH QID PRN #18 g 06/21/20 calcitonin (salmon) 200 unit/actuation nasal spray 1 spray INTRANASAL (ALT) DAILY #3.7 ml 06/27/20 Aspirin [Aspirin Enteric Coated] 81 mg PO DAILY 08/11/20 Atenolol [Tenormin] 50 mg PO HS 08/11/20 Cholecalciferol (Vitamin D3) [Vitamin D3] 1,250 mcg PO DAILY 08/11/20 Losartan Potassium [Cozaar] 100 mg PO HS 08/11/20 Rosuvastatin Calcium See Rx Instructions PO .COMPLEX 08/11/20 Sodium Chloride 1 gm PO TID #30 tab 08/12/20 traZODone HCL [Trazodone HCl] 25 mg PO HS #30 tab 08/12/20 traZODone HCL [Desyrel] 25 mg PO HS tab 08/13/20 Forms: Patient Portal Registration
[2020-08-13 11:49] VITALS: BP 130/80
== END 2020-08-13 13:15 | disposition home or self-care (01) | DRG 641 ==
LOC: CCFAL → MS 15:07
PROVIDERS: ADMIT Internal Medicine; ATTEND Internal Medicine